=== PATIENT | female | born 1965 | race African-American/Black ===

== ENCOUNTER → 2019-12-05 | Outpatient (CLI) | payer OTHER ==
[~2019-12-05] MED LIST: ASPIR 8181 MG PO; BACLOFEN 10MG T10 MG PO; CARVEDILOL12.5 MG PO; CLOPIDOGREL75 MG PO; FAMOTIDINE 20 M20 MG PO; KLOR-CON 10 ER10 MEQ PO; LANTUS SOL100 UNIT/1 SUBQ; LASIX 40 MG TAB40 MG PO; NORCO 5-325 TA1 EAC1 PO; NOVOLIN N100 UNIT/3 SUBQ; NOVOLIN R100 UNIT/2; NYSTATIN15 G3 TOP; PROBIOTIC1 EAC7 PO; SPIRONOLACTONE25 M1 PO; VOLTAREN GEL 1100 G1 TOP; ZOLOFT25 MG PO
== END ==
LOC: HYPER 14:01
DX: E11.622 Type 2 diabetes mellitus with other skin ulcer (principal); L89.893 Pressure ulcer of other site, stage 3; L97.211 Non-pressure chronic ulcer of right calf limited to breakdown of skin; E11.621 Type 2 diabetes mellitus with foot ulcer; L97.511 Non-pressure chronic ulcer of other part of right foot limited to breakdown of skin; I87.333 Chronic venous hypertension (idiopathic) with ulcer and inflammation of bilateral lower extremity; L97.821 Non-pressure chronic ulcer of other part of left lower leg limited to breakdown of skin; L84 Corns and callosities; I69.351 Hemiplegia and hemiparesis following cerebral infarction affecting right dominant side; I69.320 Aphasia following cerebral infarction; E11.42 Type 2 diabetes mellitus with diabetic polyneuropathy; E66.01 Morbid (severe) obesity due to excess calories; E11.22 Type 2 diabetes mellitus with diabetic chronic kidney disease; I13.0 Hypertensive heart and chronic kidney disease with heart failure and stage 1 through stage 4 chronic kidney disease, or unspecified chronic kidney disease; I50.9 Heart failure, unspecified; N18.9 Chronic kidney disease, unspecified; K21.9 Gastro-esophageal reflux disease without esophagitis; R26.2 Difficulty in walking, not elsewhere classified; M62.59 Muscle wasting and atrophy, not elsewhere classified, multiple sites; M62.81 Muscle weakness (generalized); F33.9 Major depressive disorder, recurrent, unspecified; Z79.82 Long term (current) use of aspirin; Z79.4 Long term (current) use of insulin; Z87.891 Personal history of nicotine dependence; Z68.32 Body mass index [BMI] 32.0-32.9, adult

== ENCOUNTER 2019-12-10 11:38 | Observation (INO) | payer OTHER ==
[2019-12-10] VITALS (7 sets, daily range): BP systolic 110–182; BP diastolic 52–78
[~2019-12-10] VITALS: Ht 180.3 cm; Wt 110.2 kg
[~2019-12-10 11:38] MED LIST changes: -ASPIR 8181 MG PO; -CLOPIDOGREL75 MG PO; -FAMOTIDINE 20 M20 MG PO; -LANTUS SOL100 UNIT/1 SUBQ; -NOVOLIN N100 UNIT/3 SUBQ; -NOVOLIN R100 UNIT/2; -SPIRONOLACTONE25 M1 PO
[2019-12-10] MEDS ORDERED: SPIRONOLACTONE25 M1 PO (12:22)
[2019-12-10 12:23] LABS: HEMATOCRIT 37.6 % (37.0-47.0); HEMOGLOBIN 12.1 gm/dL (12.0-15.0); MCHC 32.2 g/dL (28.0-37.0); MCV 86.8 fL (80.0-100.0); RBC 4.33 mil/uL (4.20-5.00); WBC 4.4 thou/uL (4.0-11.0)
[2019-12-10] MEDS ORDERED: FAMOTIDINE 20 M20 MG PO (12:23)
[2019-12-10] MEDS ORDERED: LANTUS SOL100 UNIT/1 SUBQ (12:24)
[2019-12-10] MEDS ORDERED: NOVOLIN N100 UNIT/3 SUBQ (12:25)
[2019-12-10] MEDS ORDERED: NOVOLIN R100 UNIT/2 (12:28)
[2019-12-10 12:36] LABS: CALCIUM 8.8 mg/dL (8.5-10.1); CREATININE 1.3 mg/dL (0.6-1.0); POTASSIUM 4.2 mmol/L (3.5-5.1)
--- NOTE | 2019-12-10 17:45 | NUR ---
PT ARRIVED TO UNIT AT APPROX 1520 BY [employer]AFF. PT IS ALERT, NOT ORIENTED. PT APHASIC AND UNABLE TO RESPOND COMPREHENSIVELY. RIGHT SIDE WEAKNESS D/T HX STROKE. PT FREQUENTLY CHECKED ON MAKING SURE LEFT GROIN SITE STABLE. LEFT GROIN CDI, NO HEMATOMA. MYNX CLOSURE. VSS STABLE EXCEPT FOR HIGH BP, PHYS AWARE. HYDRALAZINE ADMINISTERED PER JAN. O2 SATS WNL ON ROOM AIR. PT UNABLE TO ANSWER MOST OF ADMISSION QUESTIONS. [facility] CONTACTED, NURSE THERE WAS ABLE TO ANSWER REST OF ADMISSION QUESTIONS. TELE STRIP PRINTED AND DOCUMENTED. PT CURRENTLY BEING FED DINNER BY AID. BED REST ORDERS FOLLOWED. IVF INFUSING PER ORDERS. DENYING OF CONCERNS. WILL CONT TO MONITOR AND FOLLOW POC.
[2019-12-11 00:45] VITALS: BP 147/76
[2019-12-11 04:31] LABS: HEMATOCRIT 36.2 % (37.0-47.0); HEMOGLOBIN 11.6 gm/dL (12.0-15.0); MCH 27.5 pg (26.0-34.0); MCHC 32.1 g/dL (28.0-37.0); MCV 85.6 fL (80.0-100.0); RBC 4.23 mil/uL (4.20-5.00); WBC 5.4 thou/uL (4.0-11.0)
[2019-12-11 04:38] LABS: CALCIUM 9.2 mg/dL (8.5-10.1); CREATININE 1.2 mg/dL (0.6-1.0); POTASSIUM 3.9 mmol/L (3.5-5.1)
[2019-12-11 04:53] VITALS: BP 169/80
--- NOTE | 2019-12-11 04:56 | NUR ---
ASSUMED PT CARE AROUND 1909. PT IS ON BEDREST UNTIL 2199. R/GROIN SITE C/D/I. PT IS INCONTINENT AND APHASIC DUE TO HX OF STROKE. PT HAS FREQUENT ROUNDS MADE DUE TO LIMITATIONS. PT R/GROIN SITE BANDAGE BECAME LOOSE AND WAS REINFORCED. PT BP WAS ELEVATED AND WAS GIVEN PRN HYDRALAZINE WHICH LOWERED BP. PT WILL CONTINUED TO BE CLOSELY MONITORED.
[2019-12-11 07:49] VITALS: BP 141/72
[2019-12-11] MEDS ORDERED: CLOPIDOGREL75 MG PO (07:56)
[2019-12-11] MEDS ORDERED: ASPIR 8181 MG PO (07:56)
[2019-12-11 08:35] VITALS: BP 141/72
[2019-12-11 09:19] VITALS: BP 141/72
--- NOTE | 2019-12-11 09:57 | NUR ---
PT DISCHARGING TODAY BACK TO [facility] FAXED DC ORDERS/SUMMARY TO FACILITY SPOKE WITH ADM. HALLMAN AND THEY DO NOT ARRANGE STRETCHER VAN TRANSPORT SO TRANSPORT ARRANGE THROUGH [facility] THEY WILL PICK PT UP BETWEEN [phone]. UNIT NOTIFIEDN AND CHART COPY PER US. RN TO CALL REPORT TO [phone].
--- NOTE | 2019-12-11 10:04 | NUR ---
PT DISCHARGING TODAY BACK TO [facility] FAXED DC ORDERS/SUMMARY TO FACILITY RECEIVED CONFIRMATION AND SPOKE WITH ADM LIASON THEY DO NOT HAVE TRANSPORT FOR STRETCHER VAN SO TRANSPORT ARRANGED THROUGH [facility] TRIP #[id number] FOR STRETCHER VAN AND THEY WILL NETWORKING ADMINISTRATOR BETWEEN [phone]. LEFT MSG WITH PT'S SON (JONATHAN) OF DC AND TIME OF TRANSPORT. UNIT NOTIFIED AND CHART COPY PER US. RN TO CALL REPORT TO [phone].
--- NOTE | 2019-12-11 14:03 | NUR ---
ASSUMED PT CARE APPROXIMATELY 0700. ASSESSMENTS CHARTED. PT TO BE DISCHARGED. REPORT HAS BEEN GIVEN. PT IS NONVERBAL. PT COMMUNICATES WITH GESTURES AND DOESNT ALWAYS UNDERSTAND OTHERS.
== END 2019-12-11 13:57 ==
LOC: CATH 11:38 → TBACV 13:01 → CATH 14:09 → 2N 16:05
PROVIDERS: ADMIT Nuclear Medicine Nuclear Cardiology
DX: I73.9 Peripheral vascular disease, unspecified (principal); E78.5 Hyperlipidemia, unspecified; I25.10 Atherosclerotic heart disease of native coronary artery without angina pectoris; Z86.73 Personal history of transient ischemic attack (TIA), and cerebral infarction without residual deficits; I13.0 Hypertensive heart and chronic kidney disease with heart failure and stage 1 through stage 4 chronic kidney disease, or unspecified chronic kidney disease; E11.22 Type 2 diabetes mellitus with diabetic chronic kidney disease; N18.9 Chronic kidney disease, unspecified; I50.9 Heart failure, unspecified; E11.622 Type 2 diabetes mellitus with other skin ulcer; L97.919 Non-pressure chronic ulcer of unspecified part of right lower leg with unspecified severity; K21.9 Gastro-esophageal reflux disease without esophagitis; F32.9 Major depressive disorder, single episode, unspecified

== ENCOUNTER → 2020-03-04 | Outpatient (CLI) | payer OTHER ==
[~2020-03-04] MED LIST changes: +ASPIR 8181 MG PO; +CLOPIDOGREL75 MG PO; +FAMOTIDINE 20 M20 MG PO; +LANTUS SOL100 UNIT/1 SUBQ; +NOVOLIN N100 UNIT/3 SUBQ; +NOVOLIN R100 UNIT/2; +SPIRONOLACTONE25 M1 PO
== END ==
LOC: SJCVCIMAG 07:18
DX: R94.31 Abnormal electrocardiogram [ECG] [EKG] (principal); E11.51 Type 2 diabetes mellitus with diabetic peripheral angiopathy without gangrene; I10 Essential (primary) hypertension; Z95.828 Presence of other vascular implants and grafts

== ENCOUNTER → 2020-09-08 | Outpatient (CLI) | payer OTHER | LOC: SJCVCIMAG 07:25 | PROVIDERS: ATTEND Internal Medicine Cardiovascular Disease | DX: R94.31 Abnormal electrocardiogram [ECG] [EKG] (principal); I73.9 Peripheral vascular disease, unspecified; I10 Essential (primary) hypertension; I77.9 Disorder of arteries and arterioles, unspecified; I87.8 Other specified disorders of veins; E78.5 Hyperlipidemia, unspecified; E11.9 Type 2 diabetes mellitus without complications; Z79.4 Long term (current) use of insulin; Z95.828 Presence of other vascular implants and grafts; Z79.899 Other long term (current) drug therapy; Z86.73 Personal history of transient ischemic attack (TIA), and cerebral infarction without residual deficits ==

== ENCOUNTER → 2021-03-08 | Outpatient (CLI) | payer OTHER | LOC: SJCVCIMAG 08:24 | PROVIDERS: ATTEND Internal Medicine Cardiovascular Disease | DX: R94.31 Abnormal electrocardiogram [ECG] [EKG] (principal); I07.1 Rheumatic tricuspid insufficiency; I11.0 Hypertensive heart disease with heart failure; I50.9 Heart failure, unspecified; E78.5 Hyperlipidemia, unspecified; E11.51 Type 2 diabetes mellitus with diabetic peripheral angiopathy without gangrene; I77.9 Disorder of arteries and arterioles, unspecified; R60.0 Localized edema; I87.8 Other specified disorders of veins; Z79.4 Long term (current) use of insulin; Z86.73 Personal history of transient ischemic attack (TIA), and cerebral infarction without residual deficits; Z79.899 Other long term (current) drug therapy ==

== ENCOUNTER 2021-08-17 15:56 | Inpatient (IN) | payer OTHER ==
[~2021-08-17] VITALS: Ht 160 cm; Wt 107.2 kg
--- NOTE | ~2021-08-17 | HC ---
[facility] [place] [address] CONSULTATION Name: JENNIFER CHAUDHRY Room #: 212-P [facility] IN M.R.#: [id number] Admission: 08/17/21 Attend Phys: Jair Bass MD Discharge: 08/20/21 Date of : 61 Report #: [id number] THIS REPORT FOR: cc: FAM - Family physician unknown FAM - Family physician unknown Torrey Baldwin MD ~ DATE OF SERVICE: 08/18/2021 CHIEF COMPLAINT: Bilateral lower extremity ulcerations. HISTORY OF PRESENT ILLNESS: This is a 56-year-old female patient who presented to the Emergency Department from a nursing care facility. We follow her for wounds on her lower extremities as an outpatient. She has a history of peripheral arterial disease, coronary artery disease, hypertension and type 2 diabetes mellitus. She has had previous cerebrovascular accident with right-sided weakness and underlying aphasia. She is admitted with cellulitis and wound infection, both lower extremities. I have been asked to see her with regard to ongoing wound care. PAST MEDICAL HISTORY: Positive for venous ulcers, bilateral lower extremities as well as peripheral arterial disease, hypertension, chronic kidney disease, cerebrovascular accident, type 2 diabetes mellitus and depression. MEDICATIONS: Includes Plavix, aspirin, Nystatin, diclofenac, Zoloft, baclofen, Klor-Con, Lasix, Aldactone, famotidine, Coreg, Novolin, Norvasc, hydrocodone, metolazone. ALLERGIES: No known drug allergies. SOCIAL HISTORY: Negative for alcohol or tobacco use. She is currently residing in a nursing care facility. FAMILY HISTORY: Noncontributory. REVIEW OF SYSTEMS: Unobtainable due to patient's expressive aphasia. PHYSICAL EXAMINATION: VITAL SIGNS: Include temperature 37.2, pulse 108, respiratory rate of 20, blood pressure 147/76. GENERAL: This is a chronically ill-appearing female patient who appears to be in minimal distress. HEENT: Head normocephalic. Nose and throat are clear. NECK: Supple. LUNGS: Clear. HEART: Irregular. ABDOMEN: Soft. [facility] [address] [place] [address] CONSULTATION Name: JENNIFER CHAUDHRY Room #: [address] [place] [address] IN M.R.#: [id number] Admission: 08/17/21 Attend Phys: Jair Bass MD Discharge: 08/20/21 Date of : 61 Report #: [id number] EXTREMITIES: Examination of the lower extremities demonstrate she has a bit of a flexion contracture at the right knee and hip. Her leg can be pulled out, but resumes a contracted position. She has a nearly circumferential ulcerations, bilateral lower extremities, right greater than left with weeping odor and drainage and tenderness. Distal pulses are palpable, but diminished. NEUROLOGIC: The patient has right-sided weakness and expressive aphasia. LABORATORY STUDIES: Sodium 141, potassium 3.4, chloride 103, CO2 of 29, BUN 15, creatinine is 1.1, glucose 141. White blood cell count 5.3 with a hemoglobin of 10.6. CLINICAL IMPRESSION: 1. Venous type ulcerations, bilateral lower extremities with wound infection and cellulitis. 2. Peripheral arterial disease by prior history. 3. Abdominal fold and inframammary fold intertrigo. 4. Hypertension. 5. Type 2 diabetes mellitus. 6. Chronic kidney disease. 7. History of cerebrovascular accident with aphasia and right-sided hemiplegia. RECOMMENDATIONS: At this point in time, we will recommend a Xeroform quarter strength Dakin's moist gauze, ABD, Kerlix and Torrey to the lower extremities daily. We will check arterial Dopplers and possibly involve interventional radiology if there are significant flow-limiting stenoses noted. Can recommend nystatin powder to her skin folds. Continue medical management of her other underlying issues. I appreciate being asked to see her in consultation. By: 1020 2320 Torrey Baldwin MD /nt
[~2021-08-17 15:56] MED LIST changes: -ATORVASTATIN CA80 MG PO; -BASAGLAR K100 UNIT/1 SUBQ; -HYDROCODON-ACE1 EAC7 PO; -MELATONIN5 MG SUBLING; -METOLAZONE 2.52.5 M1 PO; -NORVASC5 MG PO; -TYLENOL325 MG PO
[2021-08-17 15:59] VITALS: BP 136/67
[2021-08-17 16:45] LABS: ABSOLUTE NEUTROPHILS 2.7 thou/uL (1.4-8.2); BASOPHILS 0.9 % (0.0-2.0); EOSINOPHILS 4.2 % (0.0-3.0); HEMOGLOBIN 10.6 gm/dL (12.0-15.0); LYMPHOCYTES 25.7 % (24.0-44.0); MCHC 33.2 g/dL (28.0-37.0); MCV 81.4 fL (80.0-100.0); MONOCYTES 10.2 % (1.0-8.0); PLATELET COUNT 311 thou/uL (150-400); RBC 3.94 mil/uL (4.20-5.00); RDW 14.7 % (10.5-14.5); WBC 4.5 thou/uL (4.0-11.0)
[2021-08-17 16:58] LABS: CALCIUM 8.6 mg/dL (8.5-10.1); CREATININE 1.3 mg/dL (0.6-1.0); POTASSIUM 3.2 mmol/L (3.5-5.1)
[2021-08-17 17:04] LABS: ALBUMIN 2.3 g/dL (3.4-5.0); TOTAL BILIRUBIN 0.2 mg/dL (0.2-1.0); TOTAL PROTEIN 9.3 g/dL (6.4-8.2)
[2021-08-17 17:56] LABS: URINE BILIRUBIN NEGATIVE (Negative); URINE BLOOD NEGATIVE (Negative); URINE CLARITY CLEAR; URINE COLOR YELLOW; URINE GLUCOSE-RANDOM* NEGATIVE (Negative); URINE KETONES NEGATIVE (Negative); URINE LEUKOCYTES-REFLEX NEGATIVE (Negative); URINE NITRITE-REFLEX NEGATIVE (Negative); URINE PROTEIN (DIPSTICK) NEGATIVE (Negative); URINE SPECIFIC GRAVITY 1.015 (1.005-1.035); URINE UROBILINOGEN 0.2 E.U./dl (0.2-1.0)
[2021-08-17] MEDS ORDERED: ATORVASTATIN CA80 MG PO (20:35)
[2021-08-17] MEDS ORDERED: TYLENOL325 MG PO (20:35)
[2021-08-17] MEDS ORDERED: NORVASC5 MG PO (20:36)
[2021-08-17] MEDS ORDERED: BASAGLAR K100 UNIT/1 SUBQ (20:39)
[2021-08-17] MEDS ORDERED: HYDROCODON-ACE1 EAC7 PO (20:50)
[2021-08-17] MEDS ORDERED: MELATONIN5 MG SUBLING (20:58)
[2021-08-17] MEDS ORDERED: METOLAZONE 2.52.5 M1 PO (21:02)
[2021-08-17 21:03] VITALS: BP 170/70
--- NOTE | 2021-08-17 21:21 | NUR ---
SPOKE WITH SUNITHA AT PT FACILITY [facility], STATES SHE WILL SEND FACE SHEET, MED REC, CURRENT ORDERS, NEXT OF KIN INFO, & PMHx.
[2021-08-17 21:30] VITALS: BP 169/73
[2021-08-17 22:07] VITALS: BP 161/78
[2021-08-18 03:59] VITALS: BP 159/80
--- NOTE | 2021-08-18 06:23 | NUR ---
RECEIVED CARE OF THIS PATIENT AT 2150 FROM ED VIA CART ACCOMPANIED BY ED PERSONEL. PATIENT ALERT AND ORIENTED TO SELF ONLY. DOES NOT SPEAK MUCH, MOSTLY GROANS AND CREEAMS. HAS DRESSINGS ON JINA LOWER EXT AND REFUSED TO HAVE THIS NURSE TAKE OFF DRESSINGS OFF TO LOOK AT WOUNDS AND TAKE PICTURES. WAS GIVEN THE MS THAT IS TO BE GIVEN PRIOR TO DRESSING CHANGES BUT STILL REFUSED. SLEPT LITTLE THIS SHIFT.
[2021-08-18 06:44] LABS: HEMOGLOBIN 10.6 gm/dL (12.0-15.0); MCH 27.2 pg (26.0-34.0); MCHC 33.1 g/dL (28.0-37.0); RBC 3.9 mil/uL (4.20-5.00); RDW 14.6 % (10.5-14.5); WBC 5.3 thou/uL (4.0-11.0)
[2021-08-18 06:58] LABS: CALCIUM 8.6 mg/dL (8.5-10.1); CREATININE 1.1 mg/dL (0.6-1.0); POTASSIUM 3.4 mmol/L (3.5-5.1)
[2021-08-18 07:09] LABS: GLYCOHEMOGLOBIN (HGB A1C) 7.4 % (4.8-5.6)
[2021-08-18 07:21] VITALS: BP 147/76
--- NOTE | 2021-08-18 09:42 | NUR ---
Assumed care of pt at 0700. Denies pain. Per night RN, pt did not let her take pictures of bilateral LE wounds. Wound care consulted. Call light within reach. Fall precautions in place. Will continue to monitor.
--- NOTE | 2021-08-18 12:35 | NUR ---
Case opened to follow for dc planning. CM role introduced to the pt at bedside. She is Alert and oriented but aphasic. The pt is able to answer yes/no questions. She has been a fdc care resident at [facility] since her stroke. She is being seen by wound care due to danielle le belinda ulcers. Clinical updated faxed to [facility] liason and message left requesting confirmation they are holding her bed. Pt's dtr and sister are her emergency contacts. PT/OT/ST gillis in progress. [facility] to advise on pt's skilled medicare days for possible dc back with snf orders.
[2021-08-18 17:01] VITALS: BP 159/81
[2021-08-18 19:21] VITALS: BP 152/88
--- NOTE | 2021-08-19 01:25 | NUR ---
ASSESSED AT START OF SHIFT. BLE FOOT DRESSING DONE. MORPHINE GIVEN FOR PAIN. IV INTACT AND ABX GIVEN. ZOFRAN GIVEN FOR NAUSEA. FALL PREC IN PLACE AND CALL LIGHT AT REACH WILL CONT WITH POC TILL EOS.
[2021-08-19 04:34] VITALS: BP 136/64
[2021-08-19 08:04] VITALS: BP 133/72
--- NOTE | 2021-08-19 09:41 | NUR ---
Assumed care of pt at 0700. Pt alert but unable to verbalize. Able to nod head for yes or no questions. Pain controlled. Dressings changed. Scheduled for aortogram today. Communicated with pt's family and updated on pt's status. Call light within reach. Fall precautions in place. Will continue to monitor.
--- NOTE | 2021-08-19 14:58 | NUR ---
Case discussed with the care team. Update given to Lida with [facility] and advised of possible dc back tomorrow under her snf benefits.
--- NOTE | 2021-08-19 18:24 | NUR ---
patient transfered to room 212 post lero from 4S. placed on monitor. sinus tach HR in 1teens. patient on room air. non-verbal at baseline. no stents placed in IR. left groin site, dressing cdi. bedrest until 1900. iv fluids infusing per orders.
[2021-08-19 19:44] VITALS: BP 157/77
[2021-08-20 05:32] VITALS: BP 135/66
[2021-08-20 08:56] VITALS: BP 138/63
[2021-08-20] MEDS ORDERED: DOXYCYCLINE 10100 M2 PO (12:47)
--- NOTE | 2021-08-20 14:21 | NUR ---
Pt dcing back to [facility] via their van at 5pm today. Pt's dtr Vinay notified and updated. Pt returning with snf orders for therapy and wound care. Orders faxed and confirmed with their liason Lida. Chart copy to be sent with the pt. Nursing to call report. [facility] liason to let pt's sister know as well as she is working there today.
== END 2021-08-20 17:35 | DRG 299 ==
LOC: ER 15:56 → 4S 19:27 → EROBS 19:27 → 4S 21:43 → 2N 08-19 16:21
PROVIDERS: Nurse Practitioner; Nurse Practitioner Family; ADMIT Hospitalist; ATTEND Hospitalist
PROC: B41D1ZZ Fluoroscopy of Aorta and Bilateral Lower Extremity Arteries using Low Osmolar Contrast (ICD-10-PCS; principal; 2021-08-19)
PROC: B4181ZZ Fluoroscopy of Bilateral Renal Arteries using Low Osmolar Contrast (ICD-10-PCS; principal; 2021-08-19)
DX: E11.51 Type 2 diabetes mellitus with diabetic peripheral angiopathy without gangrene (principal); E43 Unspecified severe protein-calorie malnutrition; I69.351 Hemiplegia and hemiparesis following cerebral infarction affecting right dominant side; L97.929 Non-pressure chronic ulcer of unspecified part of left lower leg with unspecified severity; L97.919 Non-pressure chronic ulcer of unspecified part of right lower leg with unspecified severity; I13.0 Hypertensive heart and chronic kidney disease with heart failure and stage 1 through stage 4 chronic kidney disease, or unspecified chronic kidney disease; L30.4 Erythema intertrigo; N18.9 Chronic kidney disease, unspecified; E87.6 Hypokalemia; E11.22 Type 2 diabetes mellitus with diabetic chronic kidney disease; R13.10 Dysphagia, unspecified; R53.81 Other malaise; S81.802A Unspecified open wound, left lower leg, initial encounter; S81.801A Unspecified open wound, right lower leg, initial encounter; X58.XXXA Exposure to other specified factors, initial encounter; F32.9 Major depressive disorder, single episode, unspecified; I50.9 Heart failure, unspecified; I87.8 Other specified disorders of veins; Z20.822 Contact with and (suspected) exposure to COVID-19; I25.10 Atherosclerotic heart disease of native coronary artery without angina pectoris; Z83.3 Family history of diabetes mellitus; I69.320 Aphasia following cerebral infarction; Z79.82 Long term (current) use of aspirin; Z79.899 Other long term (current) drug therapy; I69.391 Dysphagia following cerebral infarction; Y93.89 Activity, other specified; Y92.89 Other specified places as the place of occurrence of the external cause; Y99.8 Other external cause status; Z84.1 Family history of disorders of kidney and ureter; Z87.891 Personal history of nicotine dependence
CPT/HCPCS: 10100; 10194; 10195

== ENCOUNTER → 2021-08-17 | Outpatient (CLI) | payer OTHER ==
[~2021-08-17] MED LIST changes: +ATORVASTATIN CA80 MG PO; +BASAGLAR K100 UNIT/1 SUBQ; +HYDROCODON-ACE1 EAC7 PO; +MELATONIN5 MG SUBLING; +METOLAZONE 2.52.5 M1 PO; +NORVASC5 MG PO; -NOVOLIN R100 UNIT/2; +NOVOLIN R100 UNIT/2 SUBQ; +TYLENOL325 MG PO
== END ==
LOC: HYPER 07:47
PROVIDERS: ATTEND Emergency Medicine
DX: E11.622 Type 2 diabetes mellitus with other skin ulcer (principal); I87.333 Chronic venous hypertension (idiopathic) with ulcer and inflammation of bilateral lower extremity; L97.812 Non-pressure chronic ulcer of other part of right lower leg with fat layer exposed; L97.822 Non-pressure chronic ulcer of other part of left lower leg with fat layer exposed; E11.42 Type 2 diabetes mellitus with diabetic polyneuropathy; E11.22 Type 2 diabetes mellitus with diabetic chronic kidney disease; I13.0 Hypertensive heart and chronic kidney disease with heart failure and stage 1 through stage 4 chronic kidney disease, or unspecified chronic kidney disease; N18.9 Chronic kidney disease, unspecified; I50.9 Heart failure, unspecified; I69.351 Hemiplegia and hemiparesis following cerebral infarction affecting right dominant side; I69.320 Aphasia following cerebral infarction; M62.59 Muscle wasting and atrophy, not elsewhere classified, multiple sites; M62.81 Muscle weakness (generalized); R26.2 Difficulty in walking, not elsewhere classified; K21.9 Gastro-esophageal reflux disease without esophagitis; F33.9 Major depressive disorder, recurrent, unspecified; Z79.82 Long term (current) use of aspirin; Z79.4 Long term (current) use of insulin; Z87.891 Personal history of nicotine dependence